=== PATIENT | female | born 2000 | race Caucasian/White ===

== ENCOUNTER 2021-11-21 17:01 | Emergency (ER) | payer OTHER ==
[~2021-11-21 17:01] MED LIST: CYCLOBENZAPRINE10 MG PO; FEOSOL325 MG PO; MOTRIN600 MG PO; OXY-IR 5MG5 MG PO; PRENATAL FORMU1 EACH PO; PREPLUS CA-FE1 EACH PO; ZOLOFT50 MG PO
[2021-11-21 18:28] LABS: BILIRUBIN NEGATIVE (NEGATIVE); BLOOD NEGATIVE Ery/uL (NEGATIVE); CLARITY HAZY (CLEAR); COLOR YELLOW (YELLOW); GLUCOSE (U) NORMAL (NORMAL); LEUKOCYTES NEGATIVE Leu/uL (NEGATIVE); NITRITE NEGATIVE (NEGATIVE); PROTEIN NEGATIVE (NEGATIVE); SPECIFIC GRAVITY 1.025 (1.001-1.030)
== END 2021-11-21 19:32 | disposition left against medical advice (07) ==
LOC: FER 17:01
PROVIDERS: Physician Assistant
DX: O99.891 Other specified diseases and conditions complicating pregnancy (principal); R11.0 Nausea; Z53.29 Procedure and treatment not carried out because of patient's decision for other reasons
CPT/HCPCS: 81003; 99281